=== PATIENT | male | born 1985 | race Hispanic/Latino ===

== ENCOUNTER 2018-07-24 16:28 | Emergency (ER) | payer MEDICAID, OTHER ==
--- NOTE | 2018-07-24 16:41 | Emergency Department Report ---
Chief Complaint: Extremity Injury, Upper Stated Complaint: RT ARM PAIN Time Seen by Provider: 07/24/18 16:38 - HPI History of Present Illness: PCP NONE PMH NONE PSH NONE SP R SHOULDER PAIN P FALLING WHILE DOING A FLIP ON FRIDAY HAS TROUBLE LIFTING ARM LATERAL NV INTACT RX NONE MSE COMPLETED MSE screening note: Focused history and physical exam performed. Due to findings the following was ordered: ED Disposition for MSE Condition: Stable
[2018-07-24 16:42] VITALS: BP 167/98
--- NOTE | 2018-07-24 17:10 | XRay Report ---
FINAL REPORT EXAM: XR SHOULDER 2+V RT HISTORY: R SHOULDER PAIN TECHNIQUE: Three views of the right shoulder. PRIORS: None. FINDINGS: No fracture. No dislocation. Normal mineralization. No soft tissue abnormality. No degenerative change. IMPRESSION: Normal right shoulder.
--- NOTE | 2018-07-24 17:55 | Emergency Department Report ---
Upper Extremity - HPI Chief Complaint: Extremity Injury, Upper Stated Complaint: RT ARM PAIN Time Seen by Provider: 07/24/18 16:38 Upper Extremity: Right Shoulder (right shoulder injury), Right Arm (pain radiating from shoulder to right arm) Occurred When: 5 Days Mechanism: Fall Severity: severe Symptoms: Yes Pain with Movement (8/10 to shoulder and right arm), Yes Limited Range of Movement (reports limited range of motion to right shoulder), No Deformity, No Numbness, No Weakness, No Swelling, No Bruising/Ecchymosis, No Laceration or Abrasion Other History: This is a 32-year-old male who reports that he injured his right shoulder and he is having pain in right shoulder and right arm and this happened 5 days ago when he was jumping at get ear and try to do a back flip. Pain is 8 out of 10 a cane radiating to his right arm. Pain is worse with movement and no alleviating factors. Denies any chest pain or shortness of breath. Denies any neck pain. Denies any fever or chills or any numbness or tingling to his hands. ED Review of Systems ROS: Stated complaint: RT ARM PAIN Other details as noted in HPI Constitutional: denies: chills, fever Respiratory: denies: cough, shortness of breath, wheezing Cardiovascular: denies: chest pain, palpitations, edema, syncope Gastrointestinal: denies: nausea, vomiting Musculoskeletal: arthralgia. denies: back pain, joint swelling, myalgia Skin: denies: rash Neurological: denies: headache, numbness, paresthesias, abnormal gait, vertigo ED Past Medical Hx - Past Medical History Previous Medical History?: No - Surgical History Past Surgical History?: No - Family History Family history: no significant - Social History Smoking Status: Current Every Day Smoker Substance Use Type: Alcohol - Medications Home Medications: Home Medications Medication Instructions Recorded Confirmed Last Taken Type Ciprofloxacin HCl [Cipro] 500 mg PO Q12H #14 tab 06/10/13 Unknown Rx Hydrocodone Bit/Acetaminophen 1 each PO Q4H PRN #14 tablet 06/10/13 Unknown Rx [Lortab 5-500 Tablet] metroNIDAZOLE [Flagyl] 500 mg PO Q8HR #14 tablet 06/10/13 Unknown Rx Acetaminophen/Codeine [Tylenol 1 tab PO Q6H PRN #14 tab 07/24/18 Unknown Rx /Codeine # 3 tab] Ibuprofen [Motrin] 800 mg PO Q8HR PRN #12 tablet 07/24/18 Unknown Rx Upper Extremity Exam - Exam General: Vital signs noted. No distress. Alert and acting appropriately. This is a 32-year-old male well-nourished well-developed in no acute distress Head and Torso: No HEENT Abnormality, No Neck Tenderness, No Chest/Lungs Abnormality, No Abdominal Tenderness, No Back Tenderness Shoulder Exam: No Shoulder Tenderness, No Clavicle Tenderness, No Normal Range of Motion in Shoulder (limited range of motion to right shoulder glenohumeral joint with movement.), No Shoulder Deformity, No AC Joint Tenderness Arm Exam: No Arm/Humerus Tenderness, No Arm Deformity Elbow: Yes Normal Range of Motion in Elbow, No Elbow Tenderness, No Elbow Deformity Forearm: No Forearm Tenderness, No Forearm Deformity, No Pain with Pronation, No Pain with Supination Wrist: Yes Normal ROM in Wrist, No Wrist Tenderness, No Wrist Deformity, No Snuffbox Tenderness, No Pain with Axial Thumb Compression Hand: Yes Normal ROM in Digit(s), No Hand Tenderness, No Hand Deformity, No Digit Tenderness, No Digit(s) Deformity, No Tendon Dysfunction CMS Exam: Yes Normal Distal Pulses (No cce. + 2 pulses in all extremities, no neurovascular compromise), Yes Normal Capillary Refill (less than 2 seconds), Yes Normal Distal Sensation (patient with good color, movement sensation and temperature to upper extremities.), No Broken Skin ED Course Vital Signs 07/24/18 16:38 Temperature 98.5 F Pulse Rate 101 H Respiratory 18 Rate Blood Pressure 167/98 O2 Sat by Pulse 99 Oximetry - Reevaluation(s) Reevaluation #1: 07/24/18 19:06 Patient given Decadron 10 mg IM and Tylenol No. 3 2 tablets by mouth for pain. Pain is controlled and see procedure note for splinted details - Orthopedic Splinting/Casting Injury #1 Side: right Upper Extremity Injury Location: shoulder Upper Extremity Immobilizer: sling/shoulder immobilize ED Medical Decision Making - Radiology Data Radiology results: report reviewed X-ray of right shoulder 2 views dictated by radiologist and report reviewed by myself. No acute findings Findings [facility] [address] [place] [address] XRay Report Signed Patient: RICA NASCIMENTO JR MR#: [id number] : 1985 Acct:[id number] Age/Sex: 32 / M ADM Date: 07/24/18 Loc: ED Attending Dr: Ordering Physician: GABY PALMER Date of Service: 07/24/18 Procedure(s): XR shoulder 2+V RT Accession Number(s): [id number] cc: GABY PALMER Fluoro Time In Minutes: FINAL REPORT EXAM: XR SHOULDER 2+V RT HISTORY: R SHOULDER PAIN TECHNIQUE: Three views of the right shoulder. PRIORS: None. FINDINGS: No fracture. No dislocation. Normal mineralization. No soft tissue abnormality. No degenerative change. IMPRESSION: Normal right shoulder. Transcribed By: MG Dictated By: CITLALY HIGHTOWER MD Electronically Authenticated By: CITLALY HIGHTOWER MD Signed Date/Time: 07/24/181709 DD/ 07 TD/TT: 07/24/181707 - Medical Decision Making 32-year-old male here for right shoulder injury 5 days ago. X-ray findings were negative for any fracture or dislocation to right shoulder. This was dictated by radiologist and report reviewed by myself. Patient given Decadron 10 mg IM and Tylenol No. 3 2 tablets by mouth for pain which relieved this pain. He was placed in shoulder sling which she said helps his pain. Patient discharged home to follow-up with orthopedic for evaluation of rotator cuff injury. He voiced understanding and discharged home a prescription for Tylenol 3 and Motrin. Vital signs are stable and he is afebrile - Differential Diagnosis FX, dislocation, rotator cuff injury, MSK pain Critical care attestation.: If time is entered above; I have spent that time in minutes in the direct care of this critically ill patient, excluding procedure time. ED Disposition Clinical Impression: Strain of shoulder, right Qualifiers: Encounter type: initial encounter Qualified Code(s): S46.911A - Strain of unspecified muscle, fascia and tendon at shoulder and upper arm level, right arm, initial encounter Right shoulder injury Qualifiers: Encounter type: initial encounter Qualified Code(s): S49.91XA - Unspecified injury of right shoulder and upper arm, initial encounter Disposition: DC-01 TO HOME OR SELFCARE Is pt being admited?: No Does the pt Need Aspirin: No Condition: Stable Instructions: Rotator Cuff Injury (ED) Additional Instructions: Follow-up with primary care and orthopedic in 4 days. Take Tylenol 3 for severe pain and Motrin for mild to moderate pain. If his symptoms worsen, return to emergency room Please do not drive or operate heavy machinery while taking Tylenol No. 3 this medication causes drowsiness Referrals: RAHDA MILLER MD [Primary Care Provider] - 07/27/18 LYUBOV CABRERA MD [Staff Physician] - 07/27/18 Forms: Work/School Release Form(ED)
[2018-07-24] MEDS ORDERED: TYLENOL #3 PO ONE (17:57)
[2018-07-24] MEDS ORDERED: DECADRON IM STA (17:57)
[2018-07-24] MEDS ORDERED: DECADRON ONE (18:04)
== END 2018-07-24 19:30 | disposition home or self-care (01) ==
LOC: ED 16:28
DX: S46.911A Strain of unspecified muscle, fascia and tendon at shoulder and upper arm level, right arm, initial encounter (principal); F17.200 Nicotine dependence, unspecified, uncomplicated; X58.XXXA Exposure to other specified factors, initial encounter; Y93.89 Activity, other specified; Y92.89 Other specified places as the place of occurrence of the external cause; Y99.8 Other external cause status
CPT/HCPCS: 73030; 96372; 99284; J1100

== ENCOUNTER 2021-12-25 15:34 | Emergency (ER) | payer SELFPAY ==
[2021-12-25] MEDS ORDERED: oxyCODONE /ACETAMINOPHEN 5-325MG TAB PO ONE (17:01)
[2021-12-25] MEDS ORDERED: TETANUS,DIPH,PERTUSS(ACELL) VACCINE 0.5 ML SYRINGE IM ONE (17:02)
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
--- NOTE | 2021-12-25 17:45 | XRay Report ---
XR pelvis 1-2V INDICATION / CLINICAL INFORMATION: pain sp fall. COMPARISON: None available. FINDINGS: BONES/JOINT(S): No acute fracture or subluxation. Normal bone mineralization. SOFT TISSUES: No significant abnormality. ADDITIONAL FINDINGS: None. IMPRESSION: 1. No acute findings. Signer Name: Marvin Arroyo MD Signed: 12/25/2021 5:41 PM Workstation Name: [email or web address]
--- NOTE | 2021-12-25 17:47 | XRay Report ---
LEFT RIBS 4 total VIEWS INDICATION / CLINICAL INFORMATION: pain sp fall. COMPARISON: None available. FINDINGS: RIBS: No acute, displaced fracture or other acute abnormality. LUNGS: No acute findings. No pneumothorax. Signer Name: Marvin Arroyo MD Signed: 12/25/2021 5:43 PM Workstation Name: [id number]
[2021-12-25 18:40] LABS: Basophils # (Auto) 0.1 K/mm3 (0.0-0.1); Basophils % (Auto) 0.4 % (0.0-1.8); Hematocrit 40.5 % (35.5-45.6); Lymphocytes % (Auto) 6.4 % (13.4-35.0); Mean Corpuscular HGB Conc 35 % (32-34); Mean Corpuscular Volume 98 fl (84-94); Monocytes # (Auto) 1.1 K/mm3 (0.0-0.8); Monocytes % (Auto) 6.6 % (0.0-7.3); Platelet Count 311 K/mm3 (140-440); Red Blood Count 4.12 M/mm3 (3.65-5.03); Red Cell Distribution Width 13.4 % (13.2-15.2)
[2021-12-25 18:57] LABS: Blood Urea Nitrogen 10 mg/dL (9-20); Calcium 9.3 mg/dL (8.4-10.2); Hemolysis Index 7
[2021-12-25 19:08] LABS: BUN/Creatinine Ratio 14
[2021-12-25] MEDS ORDERED: KETOROLAC 30 MG/1 ML INJ IV ONE (23:09)
[2021-12-25] MEDS ORDERED: MORPHINE 4 MG/1 ML INJ IV ONE (23:09)
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
[2021-12-25 23:51] VITALS: BP 155/104
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
== END 2021-12-26 04:02 | disposition home or self-care (01) ==
LOC: ED 15:34
DX: S20.212A Contusion of left front wall of thorax, initial encounter (principal); T14.8XXA Other injury of unspecified body region, initial encounter; F17.200 Nicotine dependence, unspecified, uncomplicated; F10.20 Alcohol dependence, uncomplicated; X58.XXXA Exposure to other specified factors, initial encounter; Y93.89 Activity, other specified; Y92.89 Other specified places as the place of occurrence of the external cause; Y99.8 Other external cause status
CPT/HCPCS: 36415; 71101; 72170; 74177; 80048; 82550; 85025; 96374; 96375; 99284; J1885; J2270; Q9967